=== PATIENT | female | born 1960 | race Caucasian/White ===

== ENCOUNTER 2018-05-11 10:02 | Day surgery (SDC) | payer BC ==
[~2018-05-11] VITALS: Ht 160 cm; Wt 65.8 kg
[~2018-05-11 10:02] MED LIST: BUPIVACAINE /EPINEPHRINE/PF 0.25% 30 ML VIAL INJ ONE; CEFAZOLIN SOD 1 GM/ ISO 50 ML PREMIX IV ONE
[2018-05-11] MEDS ORDERED: METOCLOPRAMIDE HCL 10 MG/2 ML VIAL IVP PRN (13:00)
[2018-05-11] MEDS ORDERED: ONDANSETRON HCL 4 MG/2 ML VIAL IVP PRN (13:00)
[2018-05-11] MEDS ORDERED: fentaNYL CITRATE/PF 100 MCG/2 ML AMP IVP PRN ×2 (13:00)
[2018-05-11] MEDS ORDERED: KETOROLAC TROMETHAMINE 30 MG VIAL IVP PRN (13:00)
[2018-05-11] MEDS ORDERED: BUPIVACAINE /PF 0.25% 30 ML VIAL INJ ONE ×2 (13:04→13:40)
[2018-05-11] MEDS ORDERED: D5/0.45 NS 1,000 ML IV SCH (13:34)
[2018-05-11] MEDS ORDERED: fentaNYL CITRATE/PF 100 MCG/2 ML AMP ONE (13:40)
[2018-05-11] MEDS ORDERED: ONDANSETRON HCL 4 MG/2 ML VIAL ONE (13:40)
[2018-05-11] MEDS ORDERED: SEVOFLURANE 15 MIN GAS INH ONE (13:40)
[2018-05-11] MEDS ORDERED: CEFAZOLIN 1 GM IVPB PREMIX 50 ML IV ONE (13:40)
[2018-05-11] MEDS ORDERED: LR 1,000 ML IV.SOLN IV ONE (13:40)
[2018-05-11] MEDS ORDERED: MIDAZOLAM HCL 5 MG/ML VIAL (VERSED) IV ONE (13:40)
[2018-05-11] MEDS ORDERED: DEXAMETHASONE SOD PHOSPHATE 4 MG/ML VIAL ONE (13:40)
[2018-05-11] MEDS ORDERED: PROPOFOL 200MG/ 20ML VIAL (DIPRIVAN) IV ONE (13:40)
[2018-05-11] MEDS ORDERED: HYDROmorphone 1 MG INJ. 1 MG/ML AMPUL IVP PRN (13:45)
[2018-05-11] MEDS ORDERED: HYDROcodone/ACETAMIN 5-325 MG TAB (NORCO/ VICODIN) PO PRN ×2 (13:45)
[2018-05-11] MEDS ORDERED: HYDROcodone/ACETAMIN 5-325 MG TAB (NORCO/ VICODIN) ONE (15:32)
[2018-05-11 17:18] VITALS: BP_SYST 117
== END 2018-05-11 16:25 | disposition home or self-care (01) ==
LOC: SDS 10:02
PROVIDERS: ATTEND Colon & Rectal Surgery
DX: D05.02 Lobular carcinoma in situ of left breast (principal); D24.2 Benign neoplasm of left breast; N62 Hypertrophy of breast; K21.9 Gastro-esophageal reflux disease without esophagitis; E78.00 Pure hypercholesterolemia, unspecified; D25.9 Leiomyoma of uterus, unspecified; E04.2 Nontoxic multinodular goiter; Z79.01 Long term (current) use of anticoagulants; Z86.718 Personal history of other venous thrombosis and embolism; Z90.49 Acquired absence of other specified parts of digestive tract; Z98.890 Other specified postprocedural states; Z82.49 Family history of ischemic heart disease and other diseases of the circulatory system; Z80.3 Family history of malignant neoplasm of breast; Z79.899 Other long term (current) drug therapy
CPT/HCPCS: 19281; 19301; 76098; 88305; 88307; J0690 ×2; J1100; J2250; J2405; J2704; J2765; J3010; J3490 ×2; J7120; 19081